=== PATIENT | male | born 1975 | race Asian ===

== ENCOUNTER → 2020-10-08 | Outpatient (CLI) | payer OTHER | LOC: RAD 10:41 | PROVIDERS: ATTEND Orthopaedic Surgery | DX: S99.912A Unspecified injury of left ankle, initial encounter (principal); S89.92XA Unspecified injury of left lower leg, initial encounter; M54.5 Low back pain; X58.XXXA Exposure to other specified factors, initial encounter; Y93.89 Activity, other specified; Y92.89 Other specified places as the place of occurrence of the external cause; Y99.8 Other external cause status ==